=== PATIENT | female | born 1980 | race Caucasian/White ===

== ENCOUNTER 2016-06-14 05:19 | Inpatient (IN) | payer BC ==
[~2016-06-14] VITALS: Ht 182.9 cm; Wt 135.0 kg
[~2016-06-14 05:19] MED LIST: ASCO-296 PO; CHOL10003 PO; HYDR-4 PO; IBUP-1264 PO; OMEP20TA11 PO; PREN-92 PO
[2016-06-14 05:32] VITALS: BP 110/72; PULSE 100; RESP 16; TEMP 97.5
[2016-06-14] MEDS ORDERED: MAG-AL + SIM LIQUID 30 ML UDC PO PRN ×2 (06:00→15:00)
[2016-06-14] MEDS ORDERED: CALCIUM CARBONATE 500mg Chewable TAB PO PRN ×2 (06:00→15:00)
[2016-06-14] MEDS ORDERED: ACETAMINOPHEN 500 MG TABLET PO PRN ×2 (06:00→15:00)
[2016-06-14] MEDS ORDERED: LIDOCAINE 1% (10mg/ml) 2ml SDV ID PRN (06:00)
[2016-06-14] MEDS: LR 1,000 ML IV PRN ×3 (06:22→12:52)
[2016-06-14 06:30] LABS: HCT - HEMATOCRIT 38.8 % (36-46); HGB - HEMOGLOBIN 12.4 GM/DL (12-16); MEAN CORPUSCULAR HGB 28.5 UUG (26-34); MEAN CORPUSCULAR VOLUME 89.2 UM3 (80-100); MEAN PLATELET VOLUME 11.8 UM3 (9.4-12.4); RED BLOOD COUNT 4.35 M/MM3 (4.00-5.20); WBC - WHITE BLOOD COUNT 8.7 T/MM3 (4.5-11.0)
[2016-06-14] MEDS ORDERED: AMPICILLIN 2 G in NORMAL SALINE 100 ML IV ONE (06:30)
[2016-06-14] MEDS ORDERED: OXYTOCIN 30 UNIT in D5LR 500 ML PRN (07:00)
[2016-06-14] MEDS ORDERED: D5LR 1,000 ML IV PRN (07:00)
[2016-06-14 07:30] VITALS: PULSE 82; RESP 14
--- NOTE | 2016-06-14 09:18 | ANESOB ---
Epidural/ Date/Time DATE: 06/14/16 TIME: 09:16 Preop Diagnosis Procedure: Labor Epidural Plan: Epidural Height: 6 ' 0.00 " Weight: 135.000 kg BMI: kg/m2 Heart Rate: 82 Respiratory Rate: 14 P:2 Medications & Allergies Inpatient Medications Current Medications Medications (Trade) Dose Ordered Sig/Jared Start Time Stop Time Status Last Admin Dose Admin Lidocaine HCl 0.2 mg 0.2 mg PRN PRN 06/14/16 06:00 Lactated Ringer's (Lactated Ringers) 1,000 ml @ 0 mls/hr Q0M PRN 06/14/16 05:55 06/14/16 06:22 0 MLS/HR Acetaminophen (Tylenol Extra Strength) 1-2 TABS = 500-1,000 MG Q4H PRN 06/14/16 06:00 Al Hydroxide/Mg Hydroxide (Maalox) 30 ml Q4H PRN 06/14/16 06:00 Calcium Carbonate 1-2 TABS Q2H PRN 06/14/16 06:00 Ampicillin Sodium 1 g/Sodium Chloride 100 ml @ 200 mls/hr Q4H 06/14/16 10:30 Dextrose/Lactated Ringer's 1,000 ml @ 0 mls/hr Q0M PRN 06/14/16 07:00 06/14/16 07:00 0 MLS/HR Oxytocin/Dextrose/ Lactated Ringer's (Pitocin/D5lr) 503 ml @ 0 mls/hr Q0M PRN 06/14/16 07:00 06/14/16 07:08 0 MLS/HR Ascorbic Acid (Vitamin C) 500 Mg Tablet, 500 MG PO DAILY, (Reported) Cholecalciferol (Vitamin D) 1,000 Unit Capsule, 1,000 UNIT PO DAILY, (Reported) Hydrocodone Bit/Acetaminophen ([place] 5) 1 Udtab Tablet, 1-2 TAB PO Q4HR PRN for PAIN, (Reported) Ibuprofen (Ibuprofen) 800 Mg Tablet, 800 MG PO Q8H PRN for PAIN, (Reported) Omeprazole Magnesium (Prilosec Otc) 20 Mg Tablet.dr, 20 MG PO DAILY, (Reported) Vits W-Ca,Fe,Fa(<1MG) ( Vitamins) 1 Tab Tablet, 1 TAB PO DAILY, (Reported) Coded Allergies: No Known Allergies (Unverified , 06/16/10) Medical/Surgical History Anesthesia PMH: Reports: Asthma (MILD), Reflux, Denies: *Diabetes, * Hypertension, *ND, Anesthesia Reactions, Bld Transfusion Reaction, CVA/Stroke/ TIA, Cancer, Glaucoma, Malignant Hyperthermia, Pneumonia, Seizures, Thyroid Disease Smoking Status: Never smoker Does patient use chewing tobac: No Second Hand Exposure: No Substance Use Type: does not use Alcohol Intake: none Anesthesia Adverse Reactions: FOUND none Family Hx of Anesthesia Advers: none Hx of Motion Sickness: No Complications During : No Pertinent Findings Laboratory Tests 06/14/16 06:20 EKG Rhythm: Sinus Rhythm Physical Exam Respiratory: Lungs clear Cardiovascular: Regular rate, rhythm Airway Assessment Mallampati Score: II TMD: 3 Fingerbreadths Neck Extension: Good Overall Assessment: May Be Diff Intubation ASA: 2 Discussion Discussed risks/options/alternatives of anesthesia. Patient consents. Nursing pain assessment noted. Present for Discussion: Present: Spouse Attestation Statement Prior to the delivery of any anesthetic medication, I examined the patient, developed the plan, obtained the patient's consent and discussed the risk and benefits of the procedure with the patient/guardian. If the note happens to be signed after anesthesia start time, it is only due to providing efficient care of the patient and documenting at a time when the computer is available. ZACK WEAVER MANAGER DELI Jun 14, 2016 09:18
[2016-06-14 10:00] VITALS: O2SAT 99
[2016-06-14] MEDS ORDERED: AMPICILLIN 1 G in NORMAL SALINE 100 ML IV SCH (10:30)
[2016-06-14] MEDS ORDERED: ROPIVACAINE 1% 200 MG, SUFENTANIL 50 MCG in NORMAL SALINE 80 ML EPI PRN (11:30)
[2016-06-14] MEDS ORDERED: OXYTOCIN 30 UNIT in D5W 500 ML IV ONE ×4 (13:06)
[2016-06-14] MEDS ORDERED: METHYLERGONOVINE 0.2mg/ml INJECTION IM ONE (13:08)
[2016-06-14] MEDS ORDERED: MORPHINE SULFATE 2 MG SYRINGE IV PRN (13:15)
[2016-06-14] MEDS ORDERED: PHENYLEPHRINE RECTAL SUPPOSITORY RECTALLY PRN ×2 (13:15→15:00)
--- NOTE | 2016-06-14 14:42 | LDNF ---
DATE OF DELIVERY: 06/14/2016 DELIVERY NOTE Ms. Zapata is a G3, P2, 36-year-old well known to me from her care. She presented to [facility] this morning at 35 weeks 6 days estimated gestational age with rupture of membranes and contractions. She was admitted. Augmentation of labor with Pitocin was undertaken. The patient received epidural analgesia. She then proceeded to progress very rapidly. heart tones were very worrisome. However, she went very quickly to complete and +2. She pushed for a very short time, delivering the head in the OA presentation. There was no nuchal cord. Baby was bulb suctioned on perineum. With a further push she was delivered in total. Baby was then placed on mother's abdomen, further bulb suctioned and given care by the nurses and Dr. Velásquez. After about two minutes the cord was doubly clamped. It was cut by the baby's father, Leno. This is a liveborn male with Apgars of 8/9, weighing 7 pounds 0.2 ounces. After a few moments, the cord delivered spontaneously, intact, with a normal configuration and normal-appearing three-vessel cord. There was a first-degree midline laceration that was repaired with a 2-0 Vicryl. There was a right labial laceration that was hemostatic and superficial and not repaired. Total blood loss was 400 ml. At the time of this dictation, mother and baby are doing well. Ms. Zapata continues to express her desire for tubal ligation. We will try to accomplish that later today. HE
[2016-06-14] MEDS ORDERED: HYDROCORTISONE 2.5% CREAM 30 GM RECTALLY PRN (15:00)
[2016-06-14] MEDS ORDERED: MILK OF MAGNESIA 30 ML SUSP PO PRN (15:00)
[2016-06-14] MEDS ORDERED: DiphenhydrAMINE 25 MG CAPSULE PO PRN (15:00)
[2016-06-14] MEDS ORDERED: METHYLERGONOVINE 0.2mg/ml INJECTION IM PRN (15:45)
[2016-06-14] MEDS ORDERED: CALC1TAB (15:52)
[2016-06-14] MEDS ORDERED: CETI-115 PO (15:52)
[2016-06-14] MEDS ORDERED: [UNRECOGNIZED DRUG - CODE] (15:52)
--- NOTE | 2016-06-14 17:07 | ANESPO ---
Post-Op Note Date 06/14/16 Time: 17:06 Status Pt Participated in Evaluation: Pt participated in person Vital Signs Date Time Temp Pulse Resp B/P Pulse Ox O2 Delivery O2 Flow Rate FiO2 06/14/16 10:00 99 Room Air 06/14/16 07:30 82 14 06/14/16 05:32 97.5 110/72 Respiratory Function: Airway patent Cardiovascular Function: Regular pulse Telemetry Pattern: SR Mental Status: Alert/oriented Pain Level Intensity: 2 Hydration: Taking po fluids Complications during Recovery None apparent Follow-Up Instructions Instructions Per Surgeon ZACK WEAVER CRNA Jun 14, 2016 17:07
[2016-06-14] MEDS: IBUPROFEN 800 MG TABLET PO PRN (17:08)
--- NOTE | 2016-06-14 17:20 | NUR ---
Epidural Epidural catheter removed without complications, tip intact, no S/S of infection noted. Area cleansed with alcohol, betadine and covered with a bandaid. Pt. educated about S/S of infection and to call doctor with concerns.
--- NOTE | 2016-06-14 17:30 | NUR ---
Progress Note Pt ambulated to bathroom with RN supervision and denied dizziness. Pt voided w/o difficulty. RN educated pt about pericare and pad changes. Pt verbalized understanding. This RN assisted with pericare and skin care. Pad and ice pack changed with tucks pads and benzo spray applied. Linens and underpad changed. Will continue to monitor per plan of care.
[2016-06-14 17:42] VITALS: BP 128/69; PULSE 76; RESP 18; TEMP 98.3; O2SAT 97
[2016-06-14] MEDS: HYDROCODONE/APAP 5 mg/325 mg TABLET PO PRN (21:31)
[2016-06-15 00:15] VITALS: BP 114/67; PULSE 76; RESP 18; TEMP 98.6; O2SAT 97
--- NOTE | 2016-06-15 01:56 | NUR ---
Chart Check 24 hour chart check completed
--- NOTE | 2016-06-15 02:10 | NUR ---
Shift Summary Pt's VS stable. Fundus firm, small lochia, and voiding w/o difficulty. Pt tolerating po fluids and regular diet. IVSL. Pt performing cares for self and baby with help of at bedside. Pain controlled with po pain meds as ordered, Motrin and [place]. Pt up ad markie in room. Pt infant well ad markie. Pt attentive to needs and bonding appropriately. Call garcia in reach. Will continue to monitor per plan of care.
[2016-06-15 04:30] VITALS: BP 115/66; PULSE 90; RESP 16; TEMP 98.4
[2016-06-15] MEDS: HYDROCODONE/APAP 5 mg/325 mg TABLET PO PRN ×2 (04:33→13:37)
[2016-06-15] MEDS: DOCUSATE CALCIUM 240 MG CAPSULE PO SCH (09:40)
--- NOTE | 2016-06-15 11:37 | PNPDOC ---
Progress Note PPD1 Rubella: Immune GBS: Not Done/No Results Blood Type:A neg Subjective 06/15/16 Lochia: Minimal Pain: Controlled Voiding: Voiding Nausea and Vomiting: No Nausea/Vomiting Objective Vital Signs Date Time Temp Pulse Resp B/P Pulse Ox O2 Delivery O2 Flow Rate FiO2 06/15/16 04:30 98.4 90 16 115/66 06/15/16 00:15 97 Room Air General: Alert and Oriented Abdomen: Fundus Firm, Non-tender Assessment SP, Plan Routine Care, Continue PNV ANGELA CARMONA MD Jun 15, 2016 11:37
[2016-06-15 14:15] VITALS: BP_SYST 126; PULSE 88; RESP 18; TEMP 97.6; O2SAT 79
[2016-06-15 20:48] VITALS: BP 112/65; PULSE 74; RESP 18; TEMP 98.4; O2SAT 98
[2016-06-15] MEDS: IBUPROFEN 800 MG TABLET PO PRN (20:49)
[2016-06-16] MEDS ORDERED: TETANUS,DIPHTH,a PERTUS (Tdap) 0.5 ML VIAL IM ONE (00:30)
--- NOTE | 2016-06-16 03:03 | NUR ---
Shift Summary Pt's VS stable. Pt reports small lochia, and voiding w/o difficulty. Pt tolerating po fluids and regular diet. Pt performing cares for self and baby with help of at bedside. Pain controlled with po pain meds as ordered, Motrin. Pt up ad markie in room. Pt well ad markie. Pt attentive to infant needs and bonding appropriately. Call garcia in reach. Will continue to monitor per plan of care
--- NOTE | 2016-06-16 03:03 | NUR ---
Chart Check 24 hour chart check completed
[2016-06-16 06:38] VITALS: BP 111/67; PULSE 87; RESP 18; TEMP 97.7; O2SAT 97
--- NOTE | 2016-06-16 08:39 | PNPDOC ---
Progress Note PPD2 Rubella: Immune GBS: Not Done/No Results Blood Type:A neg Subjective 06/16/16 Lochia: Minimal Pain: Controlled Voiding: Voiding Nausea and Vomiting: No Nausea/Vomiting Objective Vital Signs Date Time Temp Pulse Resp B/P Pulse Ox O2 Delivery O2 Flow Rate FiO2 06/16/16 06:38 97.7 87 18 111/67 97 06/15/16 20:48 Room Air General: Alert and Oriented Abdomen: Fundus Firm, Non-tender Assessment SP, Plan Routine Care, Discharge Home, Continue PNV ANGELA CARMONA MD Jun 16, 2016 08:39
[2016-06-16] MEDS ORDERED: DOCU-168 PO (08:42)
[2016-06-16] MEDS ORDERED: IBUP-1547 PO (08:42)
[2016-06-16] MEDS: DOCUSATE CALCIUM 240 MG CAPSULE PO SCH (09:18)
--- NOTE | 2016-06-16 15:22 | NUR ---
SHIFT SUMMARY VSS. FUNDUS FIRM, SMALL LOCHIA. PT DENIES PAIN, NO PAIN MEDS GIVEN THIS SHIFT. TDAP GIVEN. BREAST FEEDING WELL X2. PROVIDED ALL SELF CARES. BEING DISCHARGED TO BOARDING .
[2016-06-16 15:30] VITALS: BP 123/69; PULSE 87; RESP 18; TEMP 98.2
== END 2016-06-16 15:30 | disposition home or self-care (01) | DRG 774 ==
LOC: OBOBS 05:19 → MC 05:26 → OBOBS 05:51 → MC 06:30
PROVIDERS: ADMIT Obstetrics & Gynecology; ATTEND Obstetrics & Gynecology
PROC: 10E0XZZ Delivery of Products of Conception, External Approach (ICD-10-PCS; principal; 2016-06-14)
PROC: 0HQ9XZZ Repair Perineum Skin, External Approach (ICD-10-PCS; 2016-06-14)
DX: O42.013 Preterm premature rupture of membranes, onset of labor within 24 hours of rupture, third trimester (principal); O10.02 Pre-existing essential hypertension complicating childbirth; O62.3 Precipitate labor; O70.0 First degree perineal laceration during delivery; O99.62 Diseases of the digestive system complicating childbirth; K21.9 Gastro-esophageal reflux disease without esophagitis; K58.1 Irritable bowel syndrome with constipation; Z3A.35 35 weeks gestation of pregnancy; Z37.0 Single live birth
CPT/HCPCS: 36415; 84112; 85027; 90715